=== PATIENT | male | born 1955 | race Caucasian/White ===

== ENCOUNTER 2022-10-29 14:55 | Outpatient (CLI) | payer MEDICARE, OTHER ==
[~2022-10-29 14:55] MED LIST: ASPI-992 PO; CARVEDILOL; CLOP75TA15 PO; ENALAPRIL; LAMI150T PO; LOPI1TAB2 PO; [UNRECOGNIZED DRUG - OTHER]
== END 2022-10-29 23:59 | disposition home or self-care (01) ==
LOC: LAB 14:55
PROVIDERS: ATTEND Specialist
DX: Z01.812 Encounter for preprocedural laboratory examination (principal); Z20.822 Contact with and (suspected) exposure to COVID-19
CPT/HCPCS: U0003; C9803

== ENCOUNTER 2022-11-03 06:35 | Day surgery (SDC) | payer MEDICARE, OTHER ==
[2022-11-03] MEDS ORDERED: ANESTHESIA TRAY IN PYXIS 1 EA TRAY MC ONE (07:50)
[2022-11-03] MEDS ORDERED: BUPIVACAINE 0.25% 75 MG/30 ML VIAL ONE (07:52)
[2022-11-03] MEDS ORDERED: methylPREDNISolone ACETATE 80 MG/ML VIAL ONE (07:52)
[2022-11-03] MEDS ORDERED: EPINEPHRINE (1:1000) 1 MG/ML AMPUL ONE (07:52)
[2022-11-03] MEDS ORDERED: MIDAZOLAM HCL 2 MG/2ML VIAL ONE (07:54)
[2022-11-03] MEDS ORDERED: FENTANYL PF 100MCG/2ML AMPUL ONE (07:54)
[2022-11-03] MEDS ORDERED: BUPIVACAINE 0.5 % PF 150 MG/30 ML VIAL ONE (08:10)
[2022-11-03] MEDS ORDERED: HYDROCODONE/APAP 5/325MG TABLET ONE (11:00)
== END 2022-11-03 13:00 | disposition home or self-care (01) ==
LOC: DS 06:35
PROVIDERS: ATTEND Specialist
DX: M75.42 Impingement syndrome of left shoulder (principal); M94.212 Chondromalacia, left shoulder; I25.10 Atherosclerotic heart disease of native coronary artery without angina pectoris; Z91.041 Radiographic dye allergy status; Z88.1 Allergy status to other antibiotic agents; Z98.890 Other specified postprocedural states; Z79.899 Other long term (current) drug therapy
CPT/HCPCS: 29827; 29824; 29826; J0690; J3490 ×3; J1100; J2704; J0171; J3010; J0330; J2405; C1713 ×2; J7030; J2250; A6253; A4217; A4565; J1040